=== PATIENT | male | born 1980 | race Caucasian/White ===

== ENCOUNTER 2019-02-14 09:06 | Inpatient (IN) | payer OTHER ==
[2019-02-14 09:52] VITALS: BMI 22.0
--- NOTE | 2019-02-14 11:02 | HP ---
CIWA Score Nausea/Vomitin Muscle Tremors: 2 Anxiety: 2 Agitation: 3 Paroxysmal Sweats: No Perspiration Orientation: 0-Oriented Tacttile Disturbances: 1-Very Mild Itch/Numbness Auditory Disturbances: 1-Very Mild Visual Disturbances: 0-None Headache: 2-Mild CIWA-Ar Total Score: 13 - Admission Criteria OASAS Guidelines: Admission for Medically Managed Detox: Requires at least one of the followin. CIWA greater than 12 2. Seizures within the past 24 hours 3. Delirium tremens within the past 24 hours 4. Hallucinations within the past 24 hours 5. Acute intervention needed for co occurring medical disorder 6. Acute intervention needed for co occurring psychiatric disorder 7. Severe withdrawal that cannot be handled at a lower level of care (continued vomiting, continued diarrhea, abnormal vital signs) requiring intravenous medication and/or fluids 8. Admission ROS S - HPI Chief Complaint: i need help to stop drinking alcohol Allergies/Adverse Reactions: Allergies Allergy/AdvReac Type Severity Reaction Status Date / Time No Known Allergies Allergy Verified 02/14/19 09:46 History of Present Illness: this 38 years old male with alcohol dependence,seeking detox,withdrawal symptom, multiple admissions in detox ,last detox in [facility] in 01/27 history of delerium tremens in the past nicotine dependence 2 cigarette/day no significant period of sobriety plan for rehab after detox Exam Limitations: No Limitations - Ebola screening Have you traveled outside of the country in the last 21 days: No (N) Have you had contact with anyone from an Ebola affected area: No Do you have a fever: No - Review of Systems Constitutional: Loss of Appetite, Malaise, Night Sweats, Changes in sleep, Weakness EENT: reports: Nose Congestion Respiratory: reports: No Symptoms reported Cardiac: reports: No Symptoms Reported GI: reports: Nausea, Poor Appetite, Vomiting, Abdominal cramping : reports: No Symptoms Reported Musculoskeletal: reports: Back Pain, Muscle Pain Integumentary: reports: Dryness Neuro: reports: Headache, Tremors Endocrine: reports: No Symptoms Reported Hematology: reports: No Symptoms Reported Psychiatric: reports: No Sypmtoms Reported, Judgement Intact, Mood/Affect Appropiate, Orientated x3 Other Systems: Reviewed and Negative Patient History - Patient Medical History Hx Anemia: No Hx Asthma: Yes (on albuterol inhaler) Hx Chronic Obstructive Pulmonary Disease (COPD): No Hx Cancer: No Hx Cardiac Disorders: No Hx Congestive Heart Failure: No Hx Hypertension: No Hx Hypercholesterolemia: No Hx Pacemaker: No HX Cerebrovascular Accident: No Hx Seizures: Yes (last 1 week ago) Hx Dementia: No Hx Diabetes: No Hx Gastrointestinal Disorders: No Hx Liver Disease: No Hx Genitourinary Disorders: No Hx Sexually Transmitted Disorders: No Hx Renal Disease (ESRD): No Hx Thyroid Disease: No Hx Human Immunodeficiency Virus (HIV): No (last 11/27 negative) Hx Hepatitis C: No Hx Depression: No Hx Suicide Attempt: No Hx Bipolar Disorder: No Hx Schizophrenia: No Other Medical History: no suicidal,no homicidal - Patient Surgical History Past Surgical History: Yes Hx Orthopedic Surgery: Yes (sugery for fx of left 5th finger in 2016) - PPD History Previous Implant?: Yes Documented Results: Negative w/o proof Implanted On Prior [facility] Admission?: No PPD to be Administered?: No - Smoking Cessation Smoking history: Current every day smoker Have you smoked in the past 12 months: Yes Aproximately how many cigarettes per day: 2 Cigars Per Day: 0 Hx Chewing Tobacco Use: No Initiated information on smoking cessation: Yes 'Breaking Loose' booklet given: 02/14/19 - Substance & Tx. History Hx Alcohol Use: Yes Hx Substance Use: No Substance Use Type: Alcohol Hx Substance Use Treatment: Yes (01/27 [facility]) - Substances abused Alcohol Substance route: Oral Frequency: Daily Amount used: 1- 1 1/2 PINTS OF VODKA Age of first use: 14 Date of last use: 02/14/19 Family Disease History - Family Disease History Family Disease History: Other: Father (alcohol) Admission Physical Exam S - Vital Signs Vital Signs: Vital Signs - 24 hr 02/14/19 09:43 Temperature 97.9 F Pulse Rate 68 Respiratory 20 Rate Blood Pressure 122/80 - Physical General Appearance: Yes: Moderate Distress, Tremorous, Sweating, Anxious HEENTM: Yes: Normal ENT Inspection, LIANA, Pharynx Normal Respiratory: Yes: Lungs Clear, Normal Breath Sounds, No Respiratory Distress Neck: Yes: Within Normal Limits, Supple, Trachea in good position Breast: Yes: Within Normal Limits Cardiology: Yes: Within Normal Limits, Regular Rhythm, Regular Rate, S1, S2 Abdominal: Yes: Within Normal Limits, Normal Bowel Sounds, Non Tender, Flat, Soft Genitourinary: Yes: Within Normal Limits Back: Yes: Muscle Spasm Musculoskeletal: Yes: Back pain, Muscle Pain Extremities: Yes: Within Normal Limits, Normal Range of Motion, Tremors Neurological: Yes: 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 NML intact, Alert, Motor Strength 5/5 Integumentary: Yes: Dry Lymphatic: Yes: Within Normal Limits - Diagnostic (1) Alcohol dependence with uncomplicated withdrawal Current Visit: Yes Status: Acute (2) Alcohol dependence with uncomplicated intoxication Current Visit: Yes Status: Acute (3) History of delirium Current Visit: Yes Status: Acute (4) Syncope Current Visit: Yes Status: Acute (5) Dehydration Current Visit: Yes Status: Acute (6) Asthma Current Visit: Yes Status: Acute (7) History of seizure Current Visit: Yes Status: Acute Cleared for Admission S - Detox or Rehab [facility] Level of Care: Medically Managed Detox Regimen/Protocol: Librium Breathalyzer - Breathalyzer Breathalyzer: 0.239 Urine Drug Screen - Test Device Lot number: [id number] Expiration date: 12/08/20 - Control Is test valid?: Yes - Results Drug screen NEGATIVE: No Urine drug screen results: BZO-Benzodiazepines Inpatient Rehab Admission - Rehab Decision to Admit Inpatient rehab admission?: No
[2019-02-14] MEDS ORDERED: MAGNESIUM HYDROX 2400MG/30ML ORAL SUSPENSION 30 ML CUP PO PRN (11:15)
[2019-02-14] MEDS ORDERED: hydrOXYzine PAMOATE 25 MG CAPSULE (FP) PO PRN (11:15)
[2019-02-14] MEDS ORDERED: MAG HYDROX/AL HYDROX/SIMETH 30 ML UNIT-DOSE CUP PO PRN (11:15)
[2019-02-14] MEDS ORDERED: BISMUTH SUBSALICYLATE 524 MG/30 ML UD PO PRN (11:15)
[2019-02-14] MEDS ORDERED: MAGNESIUM CITRATE 300 ML BOTTLE PO PRN (11:15)
[2019-02-14] MEDS ORDERED: IBUPROFEN 400 MG TABLET (FP) PO PRN (11:15)
[2019-02-14] MEDS ORDERED: ACETAMINOPHEN 325 MG TABLET (FP) PO PRN ×2 (11:15)
[2019-02-14] MEDS ORDERED: METHOCARBAMOL 500 MG TABLET PO PRN (11:15)
[2019-02-14] MEDS ORDERED: MENTHOL/PHENOL 1 EACH UD MM PRN (11:15)
[2019-02-14] MEDS: chlordiazePOXIDE HCL 25 MG CAPSULE PO PRN (12:39)
--- NOTE | 2019-02-14 13:57 | EKG ---
Test Reason : Blood Pressure : / mmHG Vent. Rate : 060 BPM Atrial Rate : 060 BPM P-R Int : 170 ms QRS Dur : 122 ms QT Int : 456 ms P-R-T Axes : 030 065 049 degrees QTc Int : 456 ms NORMAL SINUS RHYTHM NON-SPECIFIC INTRA-VENTRICULAR CONDUCTION DELAY BORDERLINE ECG NO PREVIOUS ECGS AVAILABLE Confirmed by MD MARI, JOSE ([id number]) on 02/14/2019 1:56:58 PM Referred By: ALBA BACA Confirmed By:JOSE GUERRA MD
[2019-02-14] MEDS: chlordiazePOXIDE HCL 25 MG CAPSULE PO SCH ×2 (18:18→22:26)
[2019-02-14] MEDS: MELATONIN 5 MG TABLETS PO PRN (22:26)
[2019-02-14] MEDS: THIAMINE HCL 100 MG TABLET (FP) PO SCH (22:26)
[2019-02-15] MEDS: chlordiazePOXIDE HCL 25 MG CAPSULE PO PRN (02:51)
[2019-02-15] MEDS: chlordiazePOXIDE HCL 25 MG CAPSULE PO SCH ×2 (06:25→10:12)
[2019-02-15 09:57] LABS: ALBUMIN 3.3 g/dl (3.4-5.0); BILIRUBIN,TOTAL 1.4 mg/dL (0.2-1); CALCIUM 8.5 mg/dL (8.5-10.1); CREATININE 0.8 mg/dL (0.55-1.3); TOT PROT 6.2 g/dl (6.4-8.2)
[2019-02-15 10:10] LABS: HEMOGLOBIN 12.8 GM/dL (11.7-16.9); MCH 33.6 pg (25.7-33.7); MCHC 35.7 g/dl (32.0-35.9); MEAN CELL VOLUME 94.1 fl (80-96); PLATELET COUNT 164 K/MM3 (134-434); RBC 3.82 M/mm3 (4.00-5.60); RDW 12.9 % (11.9-15.9); WHITE BLOOD COUNT 2.3 K/mm3 (4.0-10.0)
[2019-02-15] MEDS: PRENATAL VITAMINS W/ FOLIC ACID TABLET (FP) PO SCH (10:13)
[2019-02-15 12:54] LABS: EPI CELLS 0.3 /HPF (0-5/HPF); HYALINE CASTS 0 /lpf (0-8); PH,URINE 5.5 (5.0-8.0); URINE APPEARANCE CLEAR; URINE BACTERIA 0.7 /hpf (NEGATIVE); URINE BILIRUBIN NEGATIVE (NEGATIVE); URINE COLOR YELLOW; URINE GLUCOSE (UA) NEGATIVE (NEGATIVE); URINE KETONE NEGATIVE (NEGATIVE); URINE LEUK ESTERASE NEGATIVE (NEGATIVE); URINE NITRITE NEGATIVE (NEGATIVE); URINE PROTEIN 1+ (NEGATIVE); URINE RBC 0 /hpf (0-4); URINE UROBILINOGEN 0.2 mg/dL (0.2-1.0); URINE WBC 0 /hpf (0-5)
[2019-02-15] MEDS ORDERED: LORazepam 1 MG TABLET PO PRN (13:22)
--- NOTE | 2019-02-15 13:26 | PN ---
S CIWA - CIWA Score Nausea/Vomitin-No Nausea/No Vomiting Muscle Tremors: 3 Anxiety: 3 Agitation: 2 Paroxysmal Sweats: No Perspiration Orientation: 0-Oriented Tacttile Disturbances: 1-Very Mild Itch/Numbness Auditory Disturbances: 1-Very Mild Visual Disturbances: 0-None Headache: 0-None Present CIWA-Ar Total Score: 10 [facility] Progress Note (SOAP) Subjective: Interrupted Sleep, Tremors, Anxious. Objective: PATIENT A & O X 3, OBSERVED AMBULATING ON UNIT UNASSISTED. IN NO ACUTE DISTRESS. 02/15/19 13:18 Vital Signs Temperature 98.4 F 02/15/19 09:27 Pulse Rate 52 L 02/15/19 09:27 Respiratory Rate 18 02/15/19 09:27 Blood Pressure 141/72 02/15/19 09:27 O2 Sat by Pulse Oximetry (%) Laboratory Tests 02/15/19 02/15/19 02/15/19 08:00 08:00 08:00 WBC 2.3 L RBC 3.82 L Hgb 12.8 Hct 36.0 MCV 94.1 MCH 33.6 MCHC 35.7 RDW 12.9 Plt Count 164 MPV 7.0 L Sodium 141 Potassium 3.0 L Chloride 103 Carbon Dioxide 31 Anion Gap 7 L BUN 7.0 Creatinine 0.8 Est GFR (CKD-EPI)AfAm 131.34 Est GFR (CKD-EPI)NonAf 113.32 Random Glucose 121 H Calcium 8.5 Total Bilirubin 1.4 H AST 345 H ALT 159 H Alkaline Phosphatase 109 Total Protein 6.2 L Albumin 3.3 L Urine Color Urine Appearance Urine pH Ur Specific [place] Urine Protein Urine Glucose (UA) Urine Ketones Urine Blood Urine Nitrite Urine Bilirubin Urine Urobilinogen Ur Leukocyte Esterase Urine WBC (Auto) Urine RBC (Auto) Urine Casts (Auto) U Epithel Cells (Auto) Urine Bacteria (Auto) RPR Titer Nonreactive 02/15/19 09:30 WBC RBC Hgb Hct MCV MCH MCHC RDW Plt Count MPV Sodium Potassium Chloride Carbon Dioxide Anion Gap BUN Creatinine Est GFR (CKD-EPI)AfAm Est GFR (CKD-EPI)NonAf Random Glucose Calcium Total Bilirubin AST ALT Alkaline Phosphatase Total Protein Albumin Urine Color Yellow Urine Appearance Clear Urine pH 5.5 Ur Specific [place] 1.008 L Urine Protein 1+ H Urine Glucose (UA) Negative Urine Ketones Negative Urine Blood 1+ H Urine Nitrite Negative Urine Bilirubin Negative Urine Urobilinogen 0.2 Ur Leukocyte Esterase Negative Urine WBC (Auto) 0 Urine RBC (Auto) 0 Urine Casts (Auto) 0 U Epithel Cells (Auto) 0.3 Urine Bacteria (Auto) 0.7 RPR Titer LABS NOTED. Assessment: 02/15/19 13:26 WITHDRAWAL SYMPTOMS. ELEVATED LIVER ENZYMES (AST, ALT). HYPERBILIRUBINEMIA. HYPOKALEMIA. 02/15/19 13:27 Plan: CONTINUE DETOX. INCREASE DAILY PO WATER INTAKE. DUE TO SIGNIFICANTLY ELEVATED LIVER ENZYME AND TOTAL BILIRUBIN VALUES, PATIENT SWITCHED FROM LIBRIUM DETOX MEDICATION REGIMEN TO ATIVAN DETOX MEDICATION REGIMEN. HEPATIC FUNCTION PANEL ORDERED FOR 02/17/2019 TO SEE IF ANY CHANGE IN LIVER ENZYME AND TOTAL BILIRUBIN LEVELS AT THAT TIME. K-DUR, 20 MEQ PO BID FOR LOW POTASSIUM LEVEL NOTED ON DETOX ADMISSION LABORATORY ASSESSMENT. REPEAT POTASSIUM LEVEL ORDERED FOR 02/17/2019.
[2019-02-15] MEDS ORDERED: POTASSIUM CHLORIDE TABS 20 MEQ TABLET.ER (FP) PO ONE (14:00)
[2019-02-15] MEDS ORDERED: hydrOXYzine HCL 25 MG TABLET (FP) PO PRN (16:40)
[2019-02-15] MEDS: LORazepam 2 MG TABLET PO SCH ×2 (17:51→22:15)
[2019-02-15] MEDS: POTASSIUM CHLORIDE TABS 20 MEQ TABLET.ER (FP) PO SCH (17:51)
[2019-02-15] MEDS: MELATONIN 5 MG TABLETS PO PRN (22:15)
[2019-02-15] MEDS: THIAMINE HCL 100 MG TABLET (FP) PO SCH (22:15)
[2019-02-16] MEDS ORDERED: chlordiazePOXIDE HCL 25 MG CAPSULE PO SCH (05:00)
[2019-02-16] MEDS: LORazepam 2 MG TABLET PO SCH ×2 (05:24→10:10)
[2019-02-16] MEDS: POTASSIUM CHLORIDE TABS 20 MEQ TABLET.ER (FP) PO SCH ×2 (10:10→17:41)
[2019-02-16] MEDS: PRENATAL VITAMINS W/ FOLIC ACID TABLET (FP) PO SCH (10:10)
--- NOTE | 2019-02-16 11:54 | PN ---
S CIWA - CIWA Score Nausea/Vomitin Muscle Tremors: 2 Anxiety: 2 Agitation: 2 Paroxysmal Sweats: No Perspiration Orientation: 0-Oriented Tacttile Disturbances: 1-Very Mild Itch/Numbness Auditory Disturbances: 1-Very Mild Visual Disturbances: 0-None Headache: 1-Very Mild CIWA-Ar Total Score: 11 S Progress Note (SOAP) Subjective: alert,irritable,anxious,interrupted sleep,tremor Objective: 02/16/19 11:52 Vital Signs Temperature 97.7 F 02/16/19 09:33 Pulse Rate 49 L 02/16/19 09:33 Respiratory Rate 18 02/16/19 09:33 Blood Pressure 149/88 02/16/19 09:33 O2 Sat by Pulse Oximetry (%) Assessment: 02/16/19 11:53 withdrawal symptom Plan: continue detox ativan regimen,repeat liver enzymes and k in am
[2019-02-16] MEDS ORDERED: LORazepam 0.5 MG TABLET PO PRN (13:25)
[2019-02-16] MEDS: LORazepam 1 MG TABLET PO SCH ×2 (17:42→22:22)
[2019-02-16] MEDS: THIAMINE HCL 100 MG TABLET (FP) PO SCH (22:22)
[2019-02-16] MEDS: MELATONIN 5 MG TABLETS PO PRN (22:22)
[2019-02-17] MEDS ORDERED: chlordiazePOXIDE HCL 10 MG CAPSULE PO PRN
[2019-02-17] MEDS ORDERED: chlordiazePOXIDE HCL 10 MG CAPSULE PO SCH (05:00)
[2019-02-17] MEDS: LORazepam 1 MG TABLET PO SCH ×2 (05:56→10:34)
[2019-02-17 10:16] LABS: ALBUMIN 3.5 g/dl (3.4-5.0); BILIRUBIN,DIRECT 0.5 mg/dL (0.0-0.2); BILIRUBIN,TOTAL 1.1 mg/dL (0.2-1); POTASSIUM 3.8 mmol/L (3.5-5.1); TOT PROT 6.8 g/dl (6.4-8.2)
[2019-02-17] MEDS: PRENATAL VITAMINS W/ FOLIC ACID TABLET (FP) PO SCH (10:34)
[2019-02-17] MEDS: POTASSIUM CHLORIDE TABS 20 MEQ TABLET.ER (FP) PO SCH ×2 (10:34→17:40)
--- NOTE | 2019-02-17 10:35 | PN ---
[facility] CIWA - CIWA Score Nausea/Vomitin-No Nausea/No Vomiting Muscle Tremors: 2 Anxiety: 2 Agitation: 2 Paroxysmal Sweats: 3 Orientation: 0-Oriented Tacttile Disturbances: 0-None Auditory Disturbances: 0-None Visual Disturbances: 0-None Headache: 0-None Present CIWA-Ar Total Score: 9 S Progress Note (SOAP) Subjective: anxiety sweats Objective: 02/17/19 10:32 Vital Signs Temperature 97.7 F 02/17/19 09:26 Pulse Rate 54 L 02/17/19 09:26 Respiratory Rate 18 02/17/19 09:26 Blood Pressure 145/78 02/17/19 09:26 O2 Sat by Pulse Oximetry (%) Laboratory Tests 02/15/19 02/15/19 02/15/19 06:00 08:00 08:00 WBC 2.3 L RBC 3.82 L Hgb 12.8 Hct 36.0 MCV 94.1 MCH 33.6 MCHC 35.7 RDW 12.9 Plt Count 164 MPV 7.0 L Sodium 141 Potassium 3.0 L Chloride 103 Carbon Dioxide 31 Anion Gap 7 L BUN 7.0 Creatinine 0.8 Est GFR (CKD-EPI)AfAm 131.34 Est GFR (CKD-EPI)NonAf 113.32 Random Glucose 121 H Calcium 8.5 Total Bilirubin 1.4 H Direct Bilirubin AST 345 H ALT 159 H Alkaline Phosphatase 109 Total Protein 6.2 L Albumin 3.3 L Urine Color Urine Appearance Urine pH Ur Specific [place] Urine Protein Urine Glucose (UA) Urine Ketones Urine Blood Urine Nitrite Urine Bilirubin Urine Urobilinogen Ur Leukocyte Esterase Urine WBC (Auto) Urine RBC (Auto) Urine Casts (Auto) U Epithel Cells (Auto) Urine Bacteria (Auto) RPR Titer TB (QFT) Incubation TB Test (QFT) Nil 0.06 TB Test (QFT) Mitogen 5.73 TB Test (QFT) Antigen 0.15 TB Test (QFT) Negative TB Positive Criteria 02/15/19 02/15/19 02/17/19 08:00 09:30 07:50 WBC RBC Hgb Hct MCV MCH MCHC RDW Plt Count MPV Sodium Potassium 3.8 Chloride Carbon Dioxide Anion Gap BUN Creatinine Est GFR (CKD-EPI)AfAm Est GFR (CKD-EPI)NonAf Random Glucose Calcium Total Bilirubin 1.1 H Direct Bilirubin 0.5 H AST 148 H ALT 122 H Alkaline Phosphatase 111 Total Protein 6.8 Albumin 3.5 Urine Color Yellow Urine Appearance Clear Urine pH 5.5 Ur Specific [place] 1.008 L Urine Protein 1+ H Urine Glucose (UA) Negative Urine Ketones Negative Urine Blood 1+ H Urine Nitrite Negative Urine Bilirubin Negative Urine Urobilinogen 0.2 Ur Leukocyte Esterase Negative Urine WBC (Auto) 0 Urine RBC (Auto) 0 Urine Casts (Auto) 0 U Epithel Cells (Auto) 0.3 Urine Bacteria (Auto) 0.7 RPR Titer Nonreactive TB (QFT) Incubation TB Test (QFT) Nil TB Test (QFT) Mitogen TB Test (QFT) Antigen TB Test (QFT) TB Positive Criteria labs noted liver enzymes improving aaox3 ambulating no acute distress Assessment: 02/17/19 10:35 mild withdrawal sx Plan: continue detox increase fluids
[2019-02-17] MEDS: LORazepam 0.5 MG TABLET PO SCH ×2 (17:40→22:14)
[2019-02-17] MEDS: THIAMINE HCL 100 MG TABLET (FP) PO SCH (22:14)
[2019-02-17] MEDS: MELATONIN 5 MG TABLETS PO PRN (22:14)
[2019-02-18] MEDS ORDERED: chlordiazePOXIDE HCL 10 MG CAPSULE PO SCH (05:00)
[2019-02-18] MEDS: LORazepam 0.5 MG TABLET PO SCH (06:07)
--- NOTE | 2019-02-18 09:07 | DS ---
[facility] Detox Discharge Summary Admission Date: 02/14/19 Discharge Date: 02/18/19 - History Present History: Alcohol Dependence - Physical Exam Results Vital Signs: Vital Signs Temperature 97.5 F L 02/18/19 06:25 Pulse Rate 68 02/18/19 06:25 Respiratory Rate 16 02/18/19 06:25 Blood Pressure 154/90 02/18/19 06:25 O2 Sat by Pulse Oximetry (%) - Treatment Hospital Course: Detox Protocol Followed, Detoxed Safely, Responded well, Discharged Condition Good, Rehab Referral Accepted - Medication Discharge Medications: Ambulatory Orders NK [No Known Home Medication] 02/14/19 - Diagnosis (1) Alcohol dependence with uncomplicated withdrawal Current Visit: Yes Status: Chronic (2) Asthma Current Visit: Yes Status: Chronic Qualifiers: Asthma severity: mild Asthma persistence: unspecified Asthma complication type: unspecified Qualified Code(s): J45.909 - Unspecified asthma , uncomplicated (3) Elevated alanine aminotransferase (ALT) level Current Visit: Yes Status: Chronic (4) Elevated aspartate aminotransferase level Current Visit: Yes Status: Chronic (5) History of seizure Current Visit: No Status: Suspected (6) Hyperbilirubinemia Current Visit: Yes Status: Acute (7) Hypokalemia Current Visit: Yes Status: Acute - AMA Did Patient Leave Against Medical Advice: No (pt referred to PAC inpatient rehab )
[2019-02-18] MEDS: POTASSIUM CHLORIDE TABS 20 MEQ TABLET.ER (FP) PO SCH (09:17)
[2019-02-18] MEDS: PRENATAL VITAMINS W/ FOLIC ACID TABLET (FP) PO SCH (09:17)
[2019-02-18 09:36] VITALS: BP 132/83; PULSE 102; TEMP 97.9
[2019-02-19] MEDS ORDERED: chlordiazePOXIDE HCL 10 MG CAPSULE PO ONE (05:00)
[2019-02-19] MEDS ORDERED: LORazepam 0.5 MG TABLET PO ONE (17:00)
== END 2019-02-18 09:21 | disposition home or self-care (01) | DRG 775 ==
LOC: YASAS 09:06 → Y6N 11:38
PROVIDERS: ADMIT Surgery; ATTEND Surgery
PROC: HZ2ZZZZ Detoxification Services for Substance Abuse Treatment (ICD-10-PCS; principal; 2019-02-14)
PROC: HZ2ZZZZ Detoxification Services for Substance Abuse Treatment (ICD-10-PCS; 2019-02-14)
DX: F10.230 Alcohol dependence with withdrawal, uncomplicated (principal); F10.220 Alcohol dependence with intoxication, uncomplicated; F17.210 Nicotine dependence, cigarettes, uncomplicated; J45.909 Unspecified asthma, uncomplicated; E80.6 Other disorders of bilirubin metabolism; E87.6 Hypokalemia; R74.0 Nonspecific elevation of levels of transaminase and lactic acid dehydrogenase [LDH]; R74.8 Abnormal levels of other serum enzymes; R55 Syncope and collapse; Z87.898 Personal history of other specified conditions
CPT/HCPCS: 36415; 80053; 80076; 81003; 84132; 85027; 86480; 86593; 93005; 93010

== ENCOUNTER 2019-07-28 09:49 | Inpatient (IN) | payer OTHER ==
[2019-07-28 10:27] VITALS: BMI 26.3
--- NOTE | 2019-07-28 11:03 | HP ---
CIWA Score Nausea/Vomitin Muscle Tremors: 2 Anxiety: 3 Agitation: 1-Slight > Activity Paroxysmal Sweats: 1-Minimal Palms Moist Orientation: 0-Oriented Tacttile Disturbances: 0-None Auditory Disturbances: 0-None Visual Disturbances: 0-None Headache: 2-Mild CIWA-Ar Total Score: 12 - Admission Criteria OASAS Guidelines: Admission for Medically Managed Detox: Requires at least one of the followin. CIWA greater than 12 2. Seizures within the past 24 hours 3. Delirium tremens within the past 24 hours 4. Hallucinations within the past 24 hours 5. Acute intervention needed for co occurring medical disorder 6. Acute intervention needed for co occurring psychiatric disorder 7. Severe withdrawal that cannot be handled at a lower level of care (continued vomiting, continued diarrhea, abnormal vital signs) requiring intravenous medication and/or fluids 8. Admitting History and Physical - Admission Chief Complaint: "I want to be admitted to detox and then go to rehab again." History of Present Illness: 38 years old male with alcohol dependence with withdrawals,seeking detox, multiple admissions in detox, last detox in here at 02/14-02/18/19. He was able to then go to rehab in [facility] and then he was abstinent for some time and then relapsed once again. He's has multiple failed detoxes in the past. He is drinking 2 pints of vodka daily, last drank this morning. He has a history of delerium tremens in the past He has nicotine dependence 2 cigarette/day He's had very short significant period of sobriety plan for rehab after detox He has also tried vivitrol for alcohol dependence but stopped many months ago. PMH: Asthma Psurg: None other 5th finger surgery History Source: Patient Limitations to Obtaining History: No Limitations - Past Medical History Pulmonary: Yes: Asthma - Smoking History Smoking history: Current every day smoker Have you smoked in the past 12 months: Yes Aproximately how many cigarettes per day: 2 - Alcohol/Substance Use Hx Alcohol Use: Yes Admission [facility] Allergies/Adverse Reactions: Allergies Allergy/AdvReac Type Severity Reaction Status Date / Time No Known Allergies Allergy Verified 07/28/19 10:18 - Ebola screening Have you traveled outside of the country in the last 21 days: No (N) Have you had contact with anyone from an Ebola affected area: No Have you been sick,other than usual withdrawal symptoms: No Do you have a fever: No - Review of Systems EENT: reports: No Symptoms Reported Respiratory: reports: No Symptoms reported Cardiac: reports: No Symptoms Reported GI: reports: No Symptoms Reported : reports: No Symptoms Reported Musculoskeletal: reports: No Symptoms Reported Integumentary: reports: No Symptoms Reported Neuro: reports: No Symptoms reported Endocrine: reports: No Symptoms Reported Patient History - Patient Medical History Hx Anemia: No Hx Asthma: Yes (on albuterol inhaler) Hx Chronic Obstructive Pulmonary Disease (COPD): No Hx Cancer: No Hx Cardiac Disorders: No Hx Congestive Heart Failure: No Hx Hypertension: No Hx Hypercholesterolemia: No Hx Pacemaker: No HX Cerebrovascular Accident: No Hx Seizures: Yes (last 1 week ago) Hx Dementia: No Hx Diabetes: No Hx Gastrointestinal Disorders: No Hx Liver Disease: No Hx Genitourinary Disorders: No Hx Sexually Transmitted Disorders: No Hx Renal Disease (ESRD): No Hx Thyroid Disease: No Hx Human Immunodeficiency Virus (HIV): No (last 11/27 negative) Hx Hepatitis C: No Hx Depression: No Hx Suicide Attempt: No Hx Bipolar Disorder: No Hx Schizophrenia: No - Patient Surgical History Past Surgical History: Yes Hx Orthopedic Surgery: Yes (sugery for fx of left 5th finger in 2016) - Smoking Cessation Smoking history: Current every day smoker Have you smoked in the past 12 months: Yes Aproximately how many cigarettes per day: 2 Cigars Per Day: 0 Hx Chewing Tobacco Use: No Initiated information on smoking cessation: Yes 'Breaking Loose' booklet given: 07/28/19 - Substances abused Alcohol Substance route: Oral Frequency: Daily Amount used: 2 PINTS OF VODKA Age of first use: 14 Date of last use: 07/28/19 Admission Physical Exam [facility] - Vital Signs Vital Signs: Vital Signs - 24 hr 07/28/19 10:16 Temperature 97.9 F Pulse Rate 99 H Respiratory 18 Rate Blood Pressure 130/83 - Physical General Appearance: Yes: Mild Distress, Alcohol on Breath, Thin, Irritable, Sweating, Anxious HEENTM: Yes: EOMI, Hearing grossly Normal, Normal ENT Inspection, Normocephalic , Normal Voice, LIANA, Pharynx Normal, Tm's normal Respiratory: Yes: Chest Non-Tender, Lungs Clear, Normal Breath Sounds, No Respiratory Distress, No Accessory Muscle Use Neck: Yes: No masses,lesions,Nodules, Supple, Trachea in good position Breast: Yes: Within Normal Limits Cardiology: Yes: Regular Rhythm, Regular Rate, S1, S2 Abdominal: Yes: Normal Bowel Sounds, Non Tender, Flat, Soft Genitourinary: Yes: Within Normal Limits Back: Yes: Normal Inspection Musculoskeletal: Yes: full range of Motion, Gait Steady, Pelvis Stable Extremities: Yes: Normal Capillary Refill, Normal Inspection, Normal Range of Motion, Non-Tender Neurological: Yes: 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 NML intact, Fully Oriented, Alert, Motor Strength 5/5, Normal Mood/Affect, Normal Response Integumentary: Yes: Normal Color, Warm Lymphatic: Yes: Within Normal Limits - Diagnostic (1) Insomnia Current Visit: Yes Status: Acute (2) Alcohol dependence with uncomplicated withdrawal Current Visit: Yes Status: Chronic (3) Asthma Current Visit: No Status: Chronic Qualifiers: Asthma severity: mild Asthma persistence: unspecified Asthma complication type: unspecified Qualified Code(s): J45.909 - Unspecified asthma , uncomplicated (4) History of seizure Current Visit: No Status: Suspected Cleared for Admission [facility] - Detox or Rehab [facility] Level of Care: Medically Managed Detox Regimen/Protocol: Librium Claeared for Rehab Admission: No Screened but not Admitted - Documentation of Visit Screened but not Admitted: No Breathalyzer - Breathalyzer Breathalyzer: 0.115 Urine Drug Screen - Test Device Lot number: [id number] Expiration date: 03/10/21 - Control Is test valid?: Yes - Results Drug screen NEGATIVE: No Urine drug screen results: BZO-Benzodiazepines Inpatient Rehab Admission - Rehab Decision to Admit Inpatient rehab admission?: No
[2019-07-28] MEDS ORDERED: IBUPROFEN 400 MG TABLET (FP) PO PRN (11:08)
[2019-07-28] MEDS ORDERED: chlordiazePOXIDE HCL 25 MG CAPSULE PO PRN (11:08)
[2019-07-28] MEDS ORDERED: METHOCARBAMOL 500 MG TABLET PO PRN (11:08)
[2019-07-28] MEDS ORDERED: MAGNESIUM CITRATE 300 ML BOTTLE PO PRN (11:08)
[2019-07-28] MEDS ORDERED: hydrOXYzine PAMOATE 25 MG CAPSULE (FP) PO PRN (11:08)
[2019-07-28] MEDS ORDERED: ACETAMINOPHEN 325 MG TABLET (FP) PO PRN ×2 (11:08)
[2019-07-28] MEDS ORDERED: MENTHOL/PHENOL 1 EACH UD MM PRN (11:08)
[2019-07-28] MEDS ORDERED: MAGNESIUM HYDROX 2400MG/30ML ORAL SUSPENSION 30 ML CUP PO PRN (11:08)
[2019-07-28] MEDS ORDERED: BISMUTH SUBSALICYLATE 262 MG/15 ML BTL PO PRN (11:08)
[2019-07-28] MEDS ORDERED: MAG HYDROX/AL HYDROX/SIMETH 30 ML UNIT-DOSE CUP PO PRN (11:08)
[2019-07-28] MEDS ORDERED: SUVOREXANT 10 MG TABLET PO PRN (11:10)
[2019-07-28] MEDS: chlordiazePOXIDE HCL 25 MG CAPSULE PO SCH ×3 (12:13→22:04)
[2019-07-28 14:11] LABS: HEMATOCRIT 38.9 % (35.4-49); HEMOGLOBIN 13.6 GM/dL (11.7-16.9); MCH 30.9 pg (25.7-33.7); MCHC 35.1 g/dl (32.0-35.9); MEAN CELL VOLUME 88.1 fl (80-96); MEAN PLT VOLUME 6.7 fl (7.5-11.1); PLATELET COUNT 230 K/MM3 (134-434); RBC 4.41 M/mm3 (4.00-5.60); RDW 14.7 % (11.9-15.9); WHITE BLOOD COUNT 6.7 K/mm3 (4.0-10.0)
[2019-07-28 14:21] LABS: ALBUMIN 3.8 g/dl (3.4-5.0); BILIRUBIN,TOTAL 0.8 mg/dL (0.2-1); BLOOD UREA NITROGEN 7.3 mg/dL (7-18); CALCIUM 8.5 mg/dL (8.5-10.1); POTASSIUM 3.6 mmol/L (3.5-5.1); TOT PROT 7.2 g/dl (6.4-8.2)
[2019-07-28] MEDS ORDERED: ONDANSETRON *ODT* 4 MG TABLET SL ONE (15:04)
[2019-07-28] MEDS: MELATONIN 5 MG TABLETS PO PRN (22:05)
[2019-07-28] MEDS: THIAMINE HCL 100 MG TABLET (FP) PO SCH (22:05)
[2019-07-29] MEDS: chlordiazePOXIDE HCL 25 MG CAPSULE PO SCH ×4 (05:39→22:03)
[2019-07-29] MEDS ORDERED: ONDANSETRON *ODT* 4 MG TABLET SL ONE (10:43)
--- NOTE | 2019-07-29 10:43 | PN ---
[facility] CIWA - CIWA Score Nausea/Vomitin-Mild Nausea/No Vomiting Muscle Tremors: 3 Anxiety: 3 Agitation: 1-Slight > Activity Paroxysmal Sweats: 2 Orientation: 0-Oriented Tacttile Disturbances: 0-None Auditory Disturbances: 0-None Visual Disturbances: 0-None Headache: 1-Very Mild CIWA-Ar Total Score: 11 S Progress Note (SOAP) Subjective: 39 years old male admitted on 07/28/19 for alcohol withdrawal sx management treating with librium detox regimen feeling nausea after breakfast discontinue motrin begin pepcid zofran 8mg sl x 1 Objective: 07/29/19 10:44 Vital Signs Temperature 98 F 07/29/19 09:12 Pulse Rate 59 L 07/29/19 09:12 Respiratory Rate 16 07/29/19 09:12 Blood Pressure 119/61 07/29/19 09:12 O2 Sat by Pulse Oximetry (%) Laboratory Last Values WBC 6.7 K/mm3 (4.0-10.0) 07/28/19 11:10 RBC 4.41 M/mm3 (4.00-5.60) 07/28/19 11:10 Hgb 13.6 GM/dL (11.7-16.9) 07/28/19 11:10 Hct 38.9 % (35.4-49) 07/28/19 11:10 MCV 88.1 fl (80-96) 07/28/19 11:10 MCH 30.9 pg (25.7-33.7) 07/28/19 11:10 MCHC 35.1 g/dl (32.0-35.9) 07/28/19 11:10 RDW 14.7 % (11.9-15.9) D 07/28/19 11:10 Plt Count 230 K/MM3 (134-434) D 07/28/19 11:10 MPV 6.7 fl (7.5-11.1) L 07/28/19 11:10 Sodium 141 mmol/L (136-145) 07/28/19 11:10 Potassium 3.6 mmol/L (3.5-5.1) 07/28/19 11:10 Chloride 104 mmol/L (98-107) 07/28/19 11:10 Carbon Dioxide 29 mmol/L (21-32) 07/28/19 11:10 Anion Gap 9 MMOL/L (8-16) 07/28/19 11:10 BUN 7.3 mg/dL (7-18) 07/28/19 11:10 Creatinine 1.0 mg/dL (0.55-1.3) 07/28/19 11:10 Est GFR (CKD-EPI)AfAm 109.40 07/28/19 11:10 Est GFR (CKD-EPI)NonAf 94.39 07/28/19 11:10 Random Glucose 113 mg/dL (74-106) H 07/28/19 11:10 Calcium 8.5 mg/dL (8.5-10.1) 07/28/19 11:10 Total Bilirubin 0.8 mg/dL (0.2-1) 07/28/19 11:10 AST 43 U/L (15-37) H 07/28/19 11:10 ALT 37 U/L (13-61) 07/28/19 11:10 Alkaline Phosphatase 102 U/L (45-117) 07/28/19 11:10 Total Protein 7.2 g/dl (6.4-8.2) 07/28/19 11:10 Albumin 3.8 g/dl (3.4-5.0) 07/28/19 11:10 lab noted Assessment: 07/29/19 10:44 alcohol withdrawal Plan: librium regimen
[2019-07-29] MEDS: PRENATAL VITAMINS W/ FOLIC ACID TABLET (FP) PO SCH (10:44)
[2019-07-29] MEDS: NICOTINE 14 MG/24 HOURS TOPICAL PATCH TD SCH (10:45)
[2019-07-29] MEDS: FAMOTIDINE 20 MG TABLET PO SCH ×2 (10:59→22:04)
[2019-07-29] MEDS: THIAMINE HCL 100 MG TABLET (FP) PO SCH (22:03)
[2019-07-29] MEDS: MELATONIN 5 MG TABLETS PO PRN (22:04)
[2019-07-30] MEDS: chlordiazePOXIDE HCL 25 MG CAPSULE PO SCH ×4 (05:43→22:10)
[2019-07-30] MEDS: NICOTINE 14 MG/24 HOURS TOPICAL PATCH TD SCH (10:22)
[2019-07-30] MEDS: PRENATAL VITAMINS W/ FOLIC ACID TABLET (FP) PO SCH (10:22)
[2019-07-30] MEDS: FAMOTIDINE 20 MG TABLET PO SCH ×2 (10:22→22:10)
--- NOTE | 2019-07-30 13:14 | PN ---
[facility] CIWA - CIWA Score Nausea/Vomitin-Mild Nausea/No Vomiting Muscle Tremors: 2 Anxiety: 1-Mildly Anxious Agitation: 1-Slight > Activity Paroxysmal Sweats: 1-Minimal Palms Moist Orientation: 0-Oriented Tacttile Disturbances: 0-None Auditory Disturbances: 0-None Visual Disturbances: 0-None Headache: 1-Very Mild CIWA-Ar Total Score: 7 [facility] Progress Note (SOAP) Subjective: pt admitted for alcohol detox- considering rehab waiting to see O: Vital Signs - 24 hr 07/29/19 07/29/19 07/29/19 13:19 18:00 23:40 Temperature 98 F 98.9 F 97.5 F L Pulse Rate 59 L 75 83 Respiratory 16 16 18 Rate Blood Pressure 125/77 142/89 120/89 07/30/19 07/30/19 07/30/19 03:30 06:38 09:58 Temperature 97.2 F L 97.6 F Pulse Rate 61 70 Respiratory 18 18 16 Rate Blood Pressure 118/72 95/53 L Laboratory Tests 07/28/19 07/28/19 07/28/19 11:10 11:10 11:10 WBC 6.7 RBC 4.41 Hgb 13.6 Hct 38.9 MCV 88.1 MCH 30.9 MCHC 35.1 RDW 14.7 D Plt Count 230 D MPV 6.7 L Sodium 141 Potassium 3.6 Chloride 104 Carbon Dioxide 29 Anion Gap 9 BUN 7.3 Creatinine 1.0 Est GFR (CKD-EPI)AfAm 109.40 Est GFR (CKD-EPI)NonAf 94.39 Random Glucose 113 H Calcium 8.5 Total Bilirubin 0.8 AST 43 H ALT 37 Alkaline Phosphatase 102 Total Protein 7.2 Albumin 3.8 RPR Titer Nonreactive a/p: continue alcohol detox protocol- pt will f/u counselor re rehab request
[2019-07-30] MEDS: THIAMINE HCL 100 MG TABLET (FP) PO SCH (22:10)
[2019-07-31] MEDS ORDERED: chlordiazePOXIDE HCL 10 MG CAPSULE PO PRN
[2019-07-31] MEDS: chlordiazePOXIDE HCL 10 MG CAPSULE PO SCH ×4 (05:59→22:45)
[2019-07-31] MEDS: FAMOTIDINE 20 MG TABLET PO SCH ×2 (10:34→22:45)
[2019-07-31] MEDS: NICOTINE 14 MG/24 HOURS TOPICAL PATCH TD SCH (10:34)
[2019-07-31] MEDS: PRENATAL VITAMINS W/ FOLIC ACID TABLET (FP) PO SCH (10:34)
--- NOTE | 2019-07-31 11:23 | PN ---
S CIWA - CIWA Score Nausea/Vomitin-No Nausea/No Vomiting Muscle Tremors: None Anxiety: 3 Agitation: 0-Normal Activity Paroxysmal Sweats: 3 Orientation: 0-Oriented Tacttile Disturbances: 0-None Auditory Disturbances: 0-None Visual Disturbances: 0-None Headache: 0-None Present CIWA-Ar Total Score: 6 BHS Progress Note (SOAP) Subjective: c/o sweats, anxiety, and interrupted sleep. Objective: 07/31/19 11:22 Vital Signs 07/31/19 07/31/19 07/31/19 03:30 06:32 09:21 Temperature 98 F 97.7 F Pulse Rate 65 86 Respiratory 18 16 16 Rate Blood Pressure 105/67 124/78 Laboratory Last Values WBC 6.7 K/mm3 (4.0-10.0) 07/28/19 11:10 RBC 4.41 M/mm3 (4.00-5.60) 07/28/19 11:10 Hgb 13.6 GM/dL (11.7-16.9) 07/28/19 11:10 Hct 38.9 % (35.4-49) 07/28/19 11:10 MCV 88.1 fl (80-96) 07/28/19 11:10 MCH 30.9 pg (25.7-33.7) 07/28/19 11:10 MCHC 35.1 g/dl (32.0-35.9) 07/28/19 11:10 RDW 14.7 % (11.9-15.9) D 07/28/19 11:10 Plt Count 230 K/MM3 (134-434) D 07/28/19 11:10 MPV 6.7 fl (7.5-11.1) L 07/28/19 11:10 Sodium 141 mmol/L (136-145) 07/28/19 11:10 Potassium 3.6 mmol/L (3.5-5.1) 07/28/19 11:10 Chloride 104 mmol/L (98-107) 07/28/19 11:10 Carbon Dioxide 29 mmol/L (21-32) 07/28/19 11:10 Anion Gap 9 MMOL/L (8-16) 07/28/19 11:10 BUN 7.3 mg/dL (7-18) 07/28/19 11:10 Creatinine 1.0 mg/dL (0.55-1.3) 07/28/19 11:10 Est GFR (CKD-EPI)AfAm 109.40 07/28/19 11:10 Est GFR (CKD-EPI)NonAf 94.39 07/28/19 11:10 Random Glucose 113 mg/dL (74-106) H 07/28/19 11:10 Calcium 8.5 mg/dL (8.5-10.1) 07/28/19 11:10 Total Bilirubin 0.8 mg/dL (0.2-1) 07/28/19 11:10 AST 43 U/L (15-37) H 07/28/19 11:10 ALT 37 U/L (13-61) 07/28/19 11:10 Alkaline Phosphatase 102 U/L (45-117) 07/28/19 11:10 Total Protein 7.2 g/dl (6.4-8.2) 07/28/19 11:10 Albumin 3.8 g/dl (3.4-5.0) 07/28/19 11:10 RPR Titer Nonreactive (NONREACTIVE) 07/28/19 11:10 Labs noted. Assessment: 07/31/19 11:22 AOX3, in no respiratory distress. Full ROM, ambulating in the unit. Withdrawal symptoms. Plan: continue detox.
[2019-07-31] MEDS: MELATONIN 5 MG TABLETS PO PRN (22:45)
[2019-07-31] MEDS: THIAMINE HCL 100 MG TABLET (FP) PO SCH (22:45)
[2019-08-01] MEDS: chlordiazePOXIDE HCL 10 MG CAPSULE PO SCH ×2 (05:44→17:21)
[2019-08-01] MEDS: NICOTINE 14 MG/24 HOURS TOPICAL PATCH TD SCH (10:45)
[2019-08-01] MEDS: FAMOTIDINE 20 MG TABLET PO SCH ×2 (10:45→22:06)
[2019-08-01] MEDS: PRENATAL VITAMINS W/ FOLIC ACID TABLET (FP) PO SCH (10:45)
--- NOTE | 2019-08-01 11:07 | PN ---
[facility] CIWA - CIWA Score Nausea/Vomitin-No Nausea/No Vomiting Muscle Tremors: 1-None Visible, but [place] Anxiety: 1-Mildly Anxious Agitation: 0-Normal Activity Paroxysmal Sweats: 1-Minimal Palms Moist Orientation: 0-Oriented Tacttile Disturbances: 0-None Auditory Disturbances: 0-None Visual Disturbances: 0-None Headache: 0-None Present CIWA-Ar Total Score: 3 BHS Progress Note (SOAP) Subjective: 39 years old male admitted on 07/28/19 for alcohol withdrawal sx management treating with librium detox regimen feeling better today less tremor mild anxiety Objective: 08/01/19 11:06 Vital Signs Temperature 98.4 F 08/01/19 09:11 Pulse Rate 71 08/01/19 09:11 Respiratory Rate 18 08/01/19 09:11 Blood Pressure 110/73 08/01/19 09:11 O2 Sat by Pulse Oximetry (%) Laboratory Last Values WBC 6.7 K/mm3 (4.0-10.0) 07/28/19 11:10 RBC 4.41 M/mm3 (4.00-5.60) 07/28/19 11:10 Hgb 13.6 GM/dL (11.7-16.9) 07/28/19 11:10 Hct 38.9 % (35.4-49) 07/28/19 11:10 MCV 88.1 fl (80-96) 07/28/19 11:10 MCH 30.9 pg (25.7-33.7) 07/28/19 11:10 MCHC 35.1 g/dl (32.0-35.9) 07/28/19 11:10 RDW 14.7 % (11.9-15.9) D 07/28/19 11:10 Plt Count 230 K/MM3 (134-434) D 07/28/19 11:10 MPV 6.7 fl (7.5-11.1) L 07/28/19 11:10 Sodium 141 mmol/L (136-145) 07/28/19 11:10 Potassium 3.6 mmol/L (3.5-5.1) 07/28/19 11:10 Chloride 104 mmol/L (98-107) 07/28/19 11:10 Carbon Dioxide 29 mmol/L (21-32) 07/28/19 11:10 Anion Gap 9 MMOL/L (8-16) 07/28/19 11:10 BUN 7.3 mg/dL (7-18) 07/28/19 11:10 Creatinine 1.0 mg/dL (0.55-1.3) 07/28/19 11:10 Est GFR (CKD-EPI)AfAm 109.40 07/28/19 11:10 Est GFR (CKD-EPI)NonAf 94.39 07/28/19 11:10 Random Glucose 113 mg/dL (74-106) H 07/28/19 11:10 Calcium 8.5 mg/dL (8.5-10.1) 07/28/19 11:10 Total Bilirubin 0.8 mg/dL (0.2-1) 07/28/19 11:10 AST 43 U/L (15-37) H 07/28/19 11:10 ALT 37 U/L (13-61) 07/28/19 11:10 Alkaline Phosphatase 102 U/L (45-117) 07/28/19 11:10 Total Protein 7.2 g/dl (6.4-8.2) 07/28/19 11:10 Albumin 3.8 g/dl (3.4-5.0) 07/28/19 11:10 RPR Titer Nonreactive (NONREACTIVE) 07/28/19 11:10 lab noted Assessment: 08/01/19 11:07 alcohol withdrawal Plan: librium regimen
--- NOTE | 2019-08-01 18:04 | CONSULT ---
[facility] Psychiatric Consult - Data Date of interview: 08/01/19 Admission source: [facility] Identifying data: Patient is a 39 year old male, single, without children , domiciled (residing with parents) and is currently unemployed. This is one of multiple admissions for patient. Patient admitted to for alcohol dependence. Substance Abuse History: Smoking Cessation. Smoking history: Current every day smoker. Have you smoked in the past 12 months: Yes. Aproximately how many cigarettes per day: 2. Cigars Per Day: 0. Hx Chewing Tobacco Use: No. Initiated information on smoking cessation: Yes. 'Breaking Loose' booklet given : 07/28/19. - Substances abused. Alcohol. Substance route: Oral. Frequency: Daily. Amount used: 2 PINTS OF VODKA. Age of first use: 14. Date of last use: 07/28/19 Medical History: Asthma, Seizure (last week), sugery for fx of left 5th finger in 2015 Psychiatric History: Patient's first psychiatric contact was in April of [address] [facility] outpatient rehab. He reports being diagnosed with Depression and anxiety and was prescribed zooloft 50mg + gabapentin 300mg daily + 600mg HS. He continues to receive care at [facility] but has been off his medications for two weeks. At present he reports stable mood. He denies history of psychiatric hospitalizations and suicide attempt. Physical/Sexual Abuse/Trauma History: denies. Mental Status Exam - Mental Status Exam Alert and Oriented to: Time, Place, Person Cognitive Function: Good Patient Appearance: Well Groomed Mood: Euthymic Affect: Appropriate Patient Behavior: Appropriate, Cooperative Speech Pattern: Clear, Appropriate Voice Loudness: Normal Thought Process: Intact, Goal Oriented Thought Disorder: Not Present Hallucinations: Denies Suicidal Ideation: Denies Homicidal Ideation: Denies Insight/Judgement: Poor Sleep: Fair Appetite: Fair Muscle strength/Tone: Normal Gait/Station: Normal Psychiatric Findings - Problem List ([place] 1, 2,3) (1) Depressive disorder Current Visit: Yes Status: Chronic (2) Alcohol dependence with uncomplicated withdrawal Current Visit: Yes Status: Chronic - Initial Treatment Plan Initial Treatment Plan: Psychoeducation provided. Detoxification in progress. Patient has been off medications for two weeks and would prefer to see his psychiatrist again before resuming medications.
[2019-08-01] MEDS: THIAMINE HCL 100 MG TABLET (FP) PO SCH (22:06)
[2019-08-02] MEDS ORDERED: chlordiazePOXIDE HCL 10 MG CAPSULE PO ONE (05:00)
[2019-08-02 06:54] VITALS: BP 115/69; PULSE 61; TEMP 97.1
--- NOTE | 2019-08-02 14:16 | DS ---
[facility] Detox Discharge Summary Admission Date: 07/28/19 Discharge Date: 08/02/19 - History Present History: Alcohol Dependence Additional Comments: 39 years old male admitted on 07/28/19 for alcohol withdrawal sx management treated with librium detox regimen patient tolerated well alert oriented x 3 cardiac s1s2 regular rate rhythm respiratory clear lung bilaterally on auscultation extremities full range of motion - Physical Exam Results Vital Signs: Vital Signs Temperature 97.1 F L 08/02/19 06:53 Pulse Rate 61 08/02/19 06:53 Respiratory Rate 18 08/02/19 06:53 Blood Pressure 115/69 08/02/19 06:53 O2 Sat by Pulse Oximetry (%) Pertinent Admission Physical Exam Findings: alcohol withdrawal sx Laboratory Last Values WBC 6.7 K/mm3 (4.0-10.0) 07/28/19 11:10 RBC 4.41 M/mm3 (4.00-5.60) 07/28/19 11:10 Hgb 13.6 GM/dL (11.7-16.9) 07/28/19 11:10 Hct 38.9 % (35.4-49) 07/28/19 11:10 MCV 88.1 fl (80-96) 07/28/19 11:10 MCH 30.9 pg (25.7-33.7) 07/28/19 11:10 MCHC 35.1 g/dl (32.0-35.9) 07/28/19 11:10 RDW 14.7 % (11.9-15.9) D 07/28/19 11:10 Plt Count 230 K/MM3 (134-434) D 07/28/19 11:10 MPV 6.7 fl (7.5-11.1) L 07/28/19 11:10 Sodium 141 mmol/L (136-145) 07/28/19 11:10 Potassium 3.6 mmol/L (3.5-5.1) 07/28/19 11:10 Chloride 104 mmol/L (98-107) 07/28/19 11:10 Carbon Dioxide 29 mmol/L (21-32) 07/28/19 11:10 Anion Gap 9 MMOL/L (8-16) 07/28/19 11:10 BUN 7.3 mg/dL (7-18) 07/28/19 11:10 Creatinine 1.0 mg/dL (0.55-1.3) 07/28/19 11:10 Est GFR (CKD-EPI)AfAm 109.40 07/28/19 11:10 Est GFR (CKD-EPI)NonAf 94.39 07/28/19 11:10 Random Glucose 113 mg/dL (74-106) H 07/28/19 11:10 Calcium 8.5 mg/dL (8.5-10.1) 07/28/19 11:10 Total Bilirubin 0.8 mg/dL (0.2-1) 07/28/19 11:10 AST 43 U/L (15-37) H 07/28/19 11:10 ALT 37 U/L (13-61) 07/28/19 11:10 Alkaline Phosphatase 102 U/L (45-117) 07/28/19 11:10 Total Protein 7.2 g/dl (6.4-8.2) 07/28/19 11:10 Albumin 3.8 g/dl (3.4-5.0) 07/28/19 11:10 RPR Titer Nonreactive (NONREACTIVE) 07/28/19 11:10 lab noted - Treatment Hospital Course: Detox Protocol Followed, Detoxed Safely, Responded well, Discharged Condition Good, Rehab Referral Accepted Patient has Accepted [facility] Referral [facility] - Medication Discharge Medications: Ambulatory Orders NK [No Known Home Medication] 02/14/19 Gabapentin 300 mg PO DAILY 07/28/19 Sertraline HCl [Zoloft -] 50 mg PO DAILY 07/28/19 - Diagnosis (1) Alcohol dependence with uncomplicated withdrawal Status: Acute (2) Asthma Status: Chronic Qualifiers: Asthma severity: mild Asthma persistence: intermittent Asthma complication type: unspecified Qualified Code(s): J45.20 - Mild intermittent asthma, uncomplicated - AMA Did Patient Leave Against Medical Advice: No CIWA Score - CIWA Score Nausea/Vomitin-No Nausea/No Vomiting Muscle Tremors: 1-None Visible, but [place] Anxiety: 0-No Anxiety, at Ease Agitation: 0-Normal Activity Paroxysmal Sweats: No Perspiration Orientation: 0-Oriented Tacttile Disturbances: 0-None Auditory Disturbances: 0-None Visual Disturbances: 0-None Headache: 0-None Present CIWA-Ar Total Score: 1
== END 2019-08-02 08:56 | disposition home or self-care (01) | DRG 775 ==
LOC: YASAS 09:49 → Y3N 11:25
PROVIDERS: ADMIT Allergy & Immunology; ATTEND Allergy & Immunology
PROC: HZ2ZZZZ Detoxification Services for Substance Abuse Treatment (ICD-10-PCS; principal; 2019-07-28)
DX: F10.230 Alcohol dependence with withdrawal, uncomplicated (principal); F17.210 Nicotine dependence, cigarettes, uncomplicated; F32.9 Major depressive disorder, single episode, unspecified; J45.20 Mild intermittent asthma, uncomplicated; G47.00 Insomnia, unspecified; Z86.69 Personal history of other diseases of the nervous system and sense organs
CPT/HCPCS: 36415; 80053; 85027; 86593; Q0162